=== PATIENT | female | born 1995 | race Two or more races ===

== ENCOUNTER 2025-05-24 14:00 | Inpatient (IN) | payer OTHER ==
[~2025-05-24] VITALS: Ht 160 cm; Wt 3.2 kg
[2025-06-12] VITALS (9 sets, daily range): BP systolic 110–143; BP diastolic 43–85
[2025-06-12] MEDS ORDERED: OXYTOCIN 500 ML IV SCH (07:00)
[2025-06-12] MEDS ORDERED: RINGERS SOLUTION,LACTATED 1,000 ML IV SCH (07:00)
[2025-06-12] MEDS ORDERED: PRENATA CHEWAB1 EACH PO (08:40)
[2025-06-12 09:24] LABS: BASO % 0.2 % (0.1-1.2); EOS # 0.03 (0.04-0.54); EOS % 0.3 % (0.7-7.0); LYMPH # 1.06 (1.18-3.74); LYMPH % 11.2 % (19.3-53.1); MEAN PLATELET VOLUME 10.50 fl (9.4-12.4); MONO # 0.38 (0.24-0.82); MONO % 4.0 % (4.7-12.5); NEUT # 7.90 (1.56-6.13); NEUT % 83.9 % (34.0-71.1); RED CELL DISTRIBUTION WIDTH 13.0 % (11.6-14.4)
[2025-06-12 09:49] LABS: INR 0.97
[2025-06-12 11:07] LABS: ALT/SGPT 15.0 U/L (12-78); AST/SGOT 14.0 U/L (15-37); BILIRUBIN TOTAL 0.41 mg/dL (0.3-1.2); BUN CREA RATIO 15.0 (7.0-25.0); CREATININE SERUM 0.55 mg/dL (0.55-1.02); GFR 128.09; GLOBULINA 3.3 G/DL (2.4-3.5); GLUCOSE FASTING 72.0 mg/dL (65-100); OSMOLALITY SERUM 269.0 MOSM/KG (275-295)
[2025-06-12] MEDS ORDERED: MORPHINE SULFATE 4 MG/ML VIAL IV ONE (11:30)
[2025-06-12] MEDS ORDERED: LIDOCAINE HCL 1% 10ML VIAL ONE ×3 (15:40→16:20)
[2025-06-12] MEDS ORDERED: OXYTOCIN 20 UNITS/1000ML RL PIGGYBAG IV ONE (15:40)
[2025-06-12] MEDS ORDERED: ERYTHROMYCIN BASE OPHT 1GM EACH TUBE OP ONE (15:40)
[2025-06-12] MEDS ORDERED: CHLORHEXIDINE GLUCONATE 120 ML BOTTLE TOP ONE ×2 (15:40→17:45)
[2025-06-12] MEDS ORDERED: OXYTOCIN 1,000 ML IV SCH (17:45)
[2025-06-13] VITALS: BP 113/68
[2025-06-13 08:00] VITALS: BP 133/71
[2025-06-13 08:09] LABS: BASO % 0.2 % (0.1-1.2); EOS # 0.02 (0.04-0.54); EOS % 0.1 % (0.7-7.0); LYMPH # 1.48 (1.18-3.74); LYMPH % 8.8 % (19.3-53.1); MEAN PLATELET VOLUME 10.80 fl (9.4-12.4); MONO # 1.17 (0.24-0.82); MONO % 7.0 % (4.7-12.5); NEUT # 13.98 (1.56-6.13); NEUT % 83.4 % (34.0-71.1); RED CELL DISTRIBUTION WIDTH 13.2 % (11.6-14.4)
[2025-06-13] MEDS ORDERED: DOCUSATE SODIUM 100MG CAP PO SCH (09:00)
[2025-06-13] MEDS ORDERED: PNV,CALCIUM 72/IRON/FOLIC ACID 1 TAB TABLET PO SCH (09:00)
[2025-06-13] MEDS ORDERED: HYDROCORTISONE 2.5% 30 GM TUBE RECTAL PRN (09:15)
[2025-06-13 16:00] VITALS: BP 124/78
[2025-06-14] VITALS: BP 101/64
[2025-06-14 08:00] VITALS: BP 103/71
== END 2025-06-14 15:27 | disposition home or self-care (01) | DRG 807 ==
LOC: OB/GYN 06-07 14:00 → LDR 06-12 06:53 → OB/GYN 06-12 19:35
PROVIDERS: Obstetrics & Gynecology Maternal & Fetal Medicine; ADMIT Obstetrics & Gynecology Gynecology; ATTEND Obstetrics & Gynecology Gynecology
PROC: 10E0XZZ Delivery of Products of Conception, External Approach (ICD-10-PCS; principal; 2025-06-12)
PROC: 0KQM0ZZ Repair Perineum Muscle, Open Approach (ICD-10-PCS; 2025-06-12)
PROC: 4A1HXCZ Monitoring of Products of Conception, Cardiac Rate, External Approach (ICD-10-PCS; 2025-06-12)
DX: O70.1 Second degree perineal laceration during delivery (principal); Z37.0 Single live birth; Z3A.40 40 weeks gestation of pregnancy

== ENCOUNTER 2025-06-04 15:22 | Outpatient (CLI) | payer OTHER | END 2025-06-04 15:45 | disposition home or self-care (01) | LOC: NST 15:22 | PROVIDERS: ATTEND Obstetrics & Gynecology Gynecology | DX: Z34.83 Encounter for supervision of other normal pregnancy, third trimester (principal) ==

== ENCOUNTER 2025-06-07 09:16 | Outpatient (CLI) | payer OTHER | END 2025-06-07 09:53 | disposition home or self-care (01) | LOC: NST 09:16 | PROVIDERS: ATTEND Obstetrics & Gynecology Gynecology | DX: Z34.83 Encounter for supervision of other normal pregnancy, third trimester (principal) ==

== ENCOUNTER 2025-06-10 08:59 | Outpatient (CLI) | payer OTHER | END 2025-06-10 09:41 | disposition home or self-care (01) | LOC: NST 08:59 | PROVIDERS: ATTEND Obstetrics & Gynecology Maternal & Fetal Medicine | DX: Z34.83 Encounter for supervision of other normal pregnancy, third trimester (principal) ==